=== PATIENT | female | born 1995 | race Caucasian/White ===

== ENCOUNTER 2017-11-07 18:15 | Emergency (ER) | payer SELFPAY ==
[~2017-11-07] VITALS: Ht 172.7 cm; Wt 115.2 kg
--- NOTE | 2017-11-07 18:46 | ED.ADGEN ---
Past History Past Medical History: No Pertinent History, Other Past Surgical History: No Surgical History Alcohol Use: None Drug Use: None Adult General Chief Complaint Chief Complaint ..I fell a week ago.. fell on my butt going down the stairs..and bumped down about 5 stairs.. but it has never gotten better.. maybe worse today..." HPI HPI Patient is a 22 year old female who presents with gluteal, tail bone and lumbar pain. No hx defection, urination problems. No hx cancer, No hx. of immunosuppression. Follows with Dr. Hernandez office. Review of Systems Review of Systems Constitutional: Denies fever or chills [] Eyes: Denies change in visual acuity, redness, or eye pain [] HENT: Denies nasal congestion or sore throat [] Respiratory: Denies cough or shortness of breath [] Cardiovascular: No additional information not addressed in HPI [] GI: Denies abdominal pain, nausea, vomiting, bloody stools or diarrhea [] : Denies dysuria or hematuria [] Musculoskeletal: Denies back pain or joint pain [] Integument: Denies rash or skin lesions [] Neurologic: Denies headache, focal weakness or sensory changes [] Endocrine: Denies polyuria or polydipsia [] All other systems were reviewed and found to be within normal limits, except as documented in this note. Current Medications Current Medications Current Medications Medications (Trade) Dose Ordered Sig/[facility] Start Time Stop Time Status Last Admin Dose Admin Ketorolac Tromethamine (Toradol) 60 mg 1X ONCE 11/07/17 19:30 11/07/17 19:31 DC 11/07/17 19:34 60 MG Methylprednisolone Acetate (DEPO-Medrol IM) 40 mg 1X ONCE 11/07/17 19:30 11/07/17 19:31 DC 11/07/17 19:32 40 MG Morphine Sulfate (Morphine 10mg Syringe) 10 mg 1X ONCE 11/07/17 19:30 11/07/17 19:31 DC 11/07/17 19:29 10 MG Orphenadrine Citrate (Norflex) 60 mg 1X ONCE 11/07/17 19:30 11/07/17 19:31 DC 11/07/17 19:37 60 MG Allergies Allergies Allergies Coded Allergies Type Severity Reaction Last Updated Verified No Known Drug Allergies 11/07/17 No Physical Exam Physical Exam Constitutional: Well developed, well nourished, no acute distress, non-toxic appearance. [] HENT: Normocephalic, atraumatic, bilateral external ears normal, oropharynx moist, no oral exudates, nose normal. [] Eyes: PERRLA, EOMI, conjunctiva normal, no discharge. [] Neck: Normal range of motion, no tenderness, supple, no stridor. [] Cardiovascular:Heart rate regular rhythm, no murmur [] Lungs & Thorax: Bilateral breath sounds clear to auscultation [] Abdomen: Bowel sounds normal, soft, no tenderness, no masses, no pulsatile masses. Obese Skin: Warm, dry, no erythema, no rash. [] Back: muscle spasm and tenderness,Lumbar sacral groups. no CVA tenderness. [] Extremities: No tenderness, no cyanosis, no clubbing, ROM intact, no edema. [] Neurologic: Alert and oriented X 3, normal motor function, normal sensory function, no focal deficits noted. [] No saddle loss reported. DTR +2 patella or Achilles can do straight leg lift. Psychologic: Affect anxious, judgement normal, mood normal. [] Current Patient Data Vital Signs Vital Signs Date Time Temp Pulse Resp B/P (MAP) Pulse Ox O2 Delivery O2 Flow Rate FiO2 11/07/17 18:28 98.5 102 16 99 Room Air Lab Results Laboratory Tests Test 11/07/17 20:10 POC Urine HCG, Qualitative hcg negative (Negative) EKG EKG [] Radiology/Procedures Radiology/Procedures CT lumbar- show no shift, fx or acute findings[] Course & Med Decision Making Course & Med Decision Making Pertinent Labs and Imaging studies reviewed. (See chart for details). PT, ice packs. Meds Vicoprofen and Flexeril as needed . Follow up with primary. [] Final Impression Final Impression 1. Back Pain[]-contusion, sprain strain Lumbar Problems: Dragon Disclaimer Dragon Disclaimer This electronic medical record was generated, in whole or in part, using a voice recognition dictation system. JASMIN JOHN MD Nov 07, 2017 18:46
[2017-11-07] MEDS ORDERED: KETOROLAC 60 MG/2 ML VIAL. IM ONE (19:30)
[2017-11-07] MEDS ORDERED: ORPHENADRINE CITRATE 60 MG/2 ML VIAL. IM ONE (19:30)
[2017-11-07] MEDS ORDERED: MORPHINE SULFATE 10 MG/ML SYRINGE. SQ ONE (19:30)
[2017-11-07] MEDS ORDERED: methylPREDNISolone ACETATE 40 MG/ML VIAL. IM ONE (19:30)
--- NOTE | 2017-11-07 19:38 | RAD ---
CT lumbar spine without contrast History: Back pain status post injury Axial helical images of the lumbar spine were obtained without contrast. Axial, coronal and sagittal reconstruction was performed. Findings: The vertebral bodies are aligned. There is no loss of vertebral body stature. Evaluation of the central canal is limited without contrast. There is no evidence of central or neuroforaminal stenosis. Impression: No acute findings. PQRS Compliance Statement: One or more of the following individualized dose reduction techniques were utilized for this examination: 1. Automated exposure control 2. Adjustment of the mA and/or kV according to patient size 3. Use of iterative reconstruction technique Electronically signed by: Alfa Vargas III, MD (11/07/2017 7:34 PM) [facility]
[2017-11-07] MEDS ORDERED: CYCL5TAB PO (19:54)
[2017-11-07] MEDS ORDERED: HYDR-79 PO (19:54)
[2017-11-07 20:05] VITALS: BP 133/78
== END 2017-11-07 20:15 | disposition home or self-care (01) ==
LOC: ER 18:15
DX: S33.5XXA Sprain of ligaments of lumbar spine, initial encounter (principal); W10.8XXA Fall (on) (from) other stairs and steps, initial encounter; Y93.89 Activity, other specified; Y99.8 Other external cause status; Y92.89 Other specified places as the place of occurrence of the external cause
CPT/HCPCS: 72131; 81025; 96372; 99284; J1030; J1885; J2270; J2360